=== PATIENT | male | born 1945 | race Caucasian/White ===

== ENCOUNTER → 2018-03-28 09:24 | Outpatient (CLI) | payer MEDICARE, SELFPAY ==
--- NOTE | 2018-03-28 | DI.US.S_ITS ---
PROCEDURE: US ABD AORTA ANEURYSM SCREEN INDICATIONS: BRUIT TECHNIQUE: Real time scanning was performed of the aorta and iliac arteries, with image documentation. COMPARISON: None. FINDINGS: Aorta: Proximal aortic diameter measures 2.1 cm. Mid-aorta measures 1.9 cm. Distal aortic diameter is 2 cm. Iliac arteries: Right common iliac artery measures 1 cm. Left common iliac artery measures 1.2 cm. IMPRESSION: Negative for aneurysm. Dictated by: Manny Cramer M.D. on 03/28/2018 at 11:15 Approved by: Manny Cramer M.D. on 03/28/2018 at 11:16
== END ==
PROVIDERS: PCP Family Medicine Geriatric Medicine; Visit Provider Family Medicine Geriatric Medicine
DX: R09.89 Other specified symptoms and signs involving the circulatory and respiratory systems (principal)
CPT/HCPCS: 76706

== ENCOUNTER → 2023-06-16 09:42 | Outpatient (CLI) | payer MEDICARE, SELFPAY ==
--- NOTE | 2023-06-16 09:46 | DI.NM.S_ITS ---
PROCEDURE: NM KWAME PERF SPECT R&S PHARM Rest and pharmacological stress myocardial perfusion SPECT with gated imaging and ejection fraction RADIOPHARMACEUTICAL: 11.4 mCi Tc-99m tetrafosmin IV at rest and 25.6 mCi Tc-99m tetrafosmin IV at peak effect of pharmacological stress. [id number] was performed. INDICATIONS: Atherosclerotic heart disease; PAD TECHNIQUE: Radiopharmaceutical was injected at peak stress test, and also at rest. SPECT images were obtained. SPECT myocardial perfusion images were displayed in short axis, horizontal long axis, and vertical long axis views. Gated images were reviewed using [employer] software. COMPARISON: None. CARDIAC STRESS: A pharmacologic stress test was performed under the supervision of an attending staff, using an infusion of lexiscan 0.4mg IV X1. Hemodynamic data: There is normal blood pressure and heart rate response to pharmacologic stress. Symptoms: The patient denied anginal chest pain. Aminophylline: none EKG: No diagnostic changes of ischemia; no ectopy. FINDINGS: Raw data: There is good myocardial uptake of radiotracer. No significant motion artifacts. Zyag-dd-qebxb ratio is 0.28 (normal is less than 0.38 for tetrafosmin tracer). Left ventricle function: Gated images demonstrate normal left ventricular wall thickening. No segmental wall motion abnormalities. No transient ischemic dilation; TID is 0.88 (normal less than 1.3). Left ventricle resting end diastolic volume is 75 mL. Left ventricle stress ejection fraction is 84%; normal range is above 45%. Myocardial perfusion: There is normal distribution of activity in the right and left ventricular myocardium. No fixed or reversible perfusion defects based on stress prone images. IMPRESSION: Low risk, normal pharm nuclear stress test. 1) No perfusion evidence of ischemia or infarction. 2) Normal left ventricular size, wall motion, and systolic function (EF post stress 84%). 3) No ST changes during the study. 4) No angina during the study. 5) No prior nuclear stress test available for comparison. Dictated by: Yvonne Armenta MD on 06/17/2023 at 12:50 Approved by: Yvonne Armenta MD on 06/17/2023 at 12:51
--- NOTE | 2023-06-16 09:47 | DI.ECHO.S_ITS ---
[facility] : : [address] : : [place] : : [id number] : : Phone: [phone] Echocardiogram Report + + :Name: TABITHA ROUSSEAU Study Date: 06/16/2023 Height: 68 in : :[facility] ReadingLocation: Weight: 145 lb : : Gender: Male BSA: 1.8 m2 : :: 1945 Age: 78 yrs BP: 142/86 mmHg: :Reason For Study: ATHEROSCLEROTIC HEART DISEASE : :Ordering Physician: MEGHANA, : :AMADA Simmons Performed By: Derek Caba : :Referring: AMADA GARCIA : + + Interpretation Summary The ejection fraction is estimated to be 60-65%. Diastolic parameters suggest probable normal left ventricular diastolic function and normal filling pressures. The right ventricle is normal in size and function. No significant valvular abnormalities. Pulmonary artery pressures cannot be estimated because of the lack of a measurable TR jet velocity. Compared to the prior study dated 02/26/2019, no significant change. Procedure: A two-dimensional transthoracic echocardiogram with color flow and Doppler was performed. The study quality was technically adequate. Comparison is made with the echocardiogram of 02/26/2019. The patient was in sinus rhythm with heart rates between 59-63 bpm during the exam. Left Ventricle: The left ventricle is normal in size. There is borderline concentric left ventricular hypertrophy. The ejection fraction is estimated to be 60-65%. Septal motion is consistent with conduction abnormality. Diastolic parameters suggest probable normal left ventricular diastolic function and normal filling pressures. Right Ventricle: The right ventricle is normal in size and function. Atria: The left atrial size is normal. Right atrial size is normal. The interatrial septum grossly appears intact with no obvious evidence for an atrial septal defect. Mitral Valve: The mitral valve is normal in structure and function. There is no mitral valve stenosis. There is no mitral regurgitation noted. Aortic Valve: The aortic valve is trileaflet. The aortic valve is mildly calcified. There is no aortic valve stenosis. No aortic regurgitation is present. Tricuspid Valve: The tricuspid valve is normal in structure and function. There is no tricuspid stenosis. No tricuspid regurgitation. Pulmonary artery pressures cannot be estimated because of the lack of a measurable TR jet velocity. Pulmonic Valve: The pulmonic valve is not well visualized. There is no pulmonic valvular stenosis. There is no pulmonic valvular regurgitation. Great Vessels: The aortic root is normal size. The dimensions of the ascending aorta are normal. The inferior vena cava was not visualized. Pericardium/ Pleura There is no pericardial effusion. There is no pleural effusion. MMode/2D Measurements & Calculations LVIDd: 4.1 cm LVOT diam: 2.1 cm LVIDs: 2.5 cm Ao root diam: 3.3 cm FS: 40.0 % asc Aorta Diam: 2.8 cm IVSd: 1.1 cm Ao Arch Diam (Prox Trans): 2.5 cm LVPWd: 1.1 cm LV hart. diameter/BSA (cm/m^2): 2.3 LV sys. diameter/BSA (cm/m^2): 1.4 LA A2 area: 17.5 cm2 RA long axis: 4.2 cm LA A4 area: 15.4 cm2 RA area: 11.8 cm2 LA length (vol): 5.1 cm RA vol: 28.0 ml LA vol: 45.1 ml RA : 15.7 ml/m2 LA vol index: 25.3 ml/m2 RVD1 (basal): 3.1 cm RVD2 (mid): 2.8 cm TAPSE: 1.9 cm Doppler Measurements & Calculations Ao V2 max: 141.9 cm/sec LVOT Max Alex: 111.3 cm/sec Ao V2 mean: 89.6 cm/sec LV V1 max P.0 mmHg Ao max P.1 mmHg LV V1 VTI: 25.4 cm Ao mean P.8 mmHg RONY(I,D): 2.7 cm2 Ao V2 VTI: 32.7 cm RONY(V,D): 2.8 cm2 sev ratio: 0.78 RONY indexed to BSA (cm^2/m^2): 1.5 MV E max alex: 62.1 cm/sec PA V2 max: 114.0 cm/sec MV A max alex: 98.5 cm/sec PA V2 mean: 65.1 cm/sec MV E/A: 0.63 PA mean P.1 mmHg Med Peak E' Alex: 5.3 cm/sec PA pr(Accel): 41.3 mmHg E/E' med: 11.7 Lat Peak E' Alex: 8.1 cm/sec E/E' lat: 7.7 E/e' average: 9.7 MV dec time: 0.24 sec SV(LVOT): 89.4 ml Reading Physician:05:30 PM
--- NOTE | 2023-06-16 09:47 | DI.US.S_ITS ---
PROCEDURE: US ARTERIAL DUPLEX LE BI INDICATIONS: Atherosclerotic heart disease; PAD TECHNIQUE: Color and pulse Doppler interrogation was performed of both lower extremity arterial systems, with image documentation. COMPARISON: None. FINDINGS: Right lower extremity: Common femoral artery: 111 cm/sec, with triphasic flow. Deep femoral artery: 82 cm/sec, with triphasic flow. Proximal superficial femoral artery: 98 cm/sec, with triphasic flow. Mid superficial femoral artery: 98 cm/sec, with triphasic flow. Distal superficial femoral artery: 95 cm/sec, with triphasic flow. Popliteal artery: 74 cm/sec, with triphasic flow. Posterior tibial artery: 51 cm/sec, with triphasic/biphasic flow. Anterior tibial artery/dorsalis pedis: 74 cm/sec, with triphasic/biphasic flow. Thomas-scale imaging description: No focal hemodynamically significant stenosis visualized; however collateral vessels are visualized at the distal right SFA which suggests a mild to moderate sonographically occult stenosis. Left lower extremity: Common femoral artery: 74 cm/sec, with triphasic flow. Deep femoral artery: 61 cm/sec, with triphasic flow. Proximal superficial femoral artery: 81 cm/sec, with triphasic flow. Mid superficial femoral artery: 90 cm/sec, with triphasic flow. Distal superficial femoral artery: 72 cm/sec, with triphasic flow. Popliteal artery: 63 cm/sec, with triphasic/biphasic flow. Posterior tibial artery: 46 cm/sec, with triphasic/biphasic flow. Anterior tibial artery/dorsalis pedis: 56 cm/sec, with triphasic/biphasic flow. Thomas-scale imaging description: No focal hemodynamically significant stenosis. IMPRESSION: 1. Question mild to moderate stenosis within the distal right SFA. 2. No hemodynamically significant stenosis of the left lower extremity. Dictated by: Rosalina Escobar M.D. on 06/16/2023 at 15:15 Approved by: Rosalina Escobar M.D. on 06/16/2023 at 15:18
== END ==
PROVIDERS: PCP Family Medicine Geriatric Medicine; Referring Provider Internal Medicine Cardiovascular Disease; Visit Provider Internal Medicine Cardiovascular Disease
DX: I73.9 Peripheral vascular disease, unspecified (principal); I25.10 Atherosclerotic heart disease of native coronary artery without angina pectoris
CPT/HCPCS: 78452; 93017; 93306; 93925; A9502; J2785